=== PATIENT | male | born 1990 | race African-American/Black ===

== ENCOUNTER 2021-07-07 03:23 | Emergency (ER) | payer OTHER ==
[2021-07-07 03:38] VITALS: BP 159/92; PULSE 115; TEMP 98.3; BMI 36.9
[2021-07-07] MEDS ORDERED: ONDANSETRON *ODT* 4 MG TABLET SL ONE (04:05)
[2021-07-07] MEDS ORDERED: ONDANSETRON *ODT* 4 MG TABLET ONE (04:12)
[2021-07-07] MEDS ORDERED: KETOROLAC TROMETHAMINE 60 MG/2 ML VIAL IM ONE (04:42)
[2021-07-07] MEDS ORDERED: KETOROLAC TROMETHAMINE 60 MG/2 ML VIAL ONE (04:44)
[2021-07-07 06:03] LABS: PH,URINE 5.5 (5.0-8.0); URINE APPEARANCE CLEAR; URINE BILIRUBIN NEGATIVE (NEGATIVE); URINE COLOR YELLOW; URINE GLUCOSE (UA) NEGATIVE (NEGATIVE); URINE KETONE TRACE (NEGATIVE); URINE LEUK ESTERASE NEGATIVE (NEGATIVE); URINE NITRITE NEGATIVE (NEGATIVE); URINE PROTEIN NEGATIVE (NEGATIVE); URINE UROBILINOGEN 0.2 mg/dL (0.2-1.0)
[2021-07-07] MEDS ORDERED: HEPARIN NA (PORCINE) 5,000 UNITS/ML 1ML VIAL ONE (06:18)
== END 2021-07-07 06:43 | disposition home or self-care (01) ==
LOC: JER 03:23
PROC: 3E0233Z Introduction of Anti-inflammatory into Muscle, Percutaneous Approach (ICD-10-PCS; principal; 2021-07-07)
DX: S29.9XXA Unspecified injury of thorax, initial encounter (principal)
CPT/HCPCS: 71101-TC-LT-FY; 81003; 87086; 96372; 99283-25; Q0162